=== PATIENT | male | born 1990 | race Caucasian/White ===

== ENCOUNTER 2017-12-06 11:46 | Emergency (ER) | payer OTHER ==
[2017-12-06] MEDS ORDERED: Ketorolac Tromethamine 60 MG/2 ML VIAL ONE (13:04)
== END 2017-12-06 13:12 | disposition home or self-care (01) ==
LOC: ERS 11:46
DX: G89.18 Other acute postprocedural pain (principal); R10.9 Unspecified abdominal pain; Z79.899 Other long term (current) drug therapy
CPT/HCPCS: 96372; J1885

== ENCOUNTER 2019-12-02 17:56 | Observation (INO) | payer OTHER ==
[2019-12-02] MEDS ORDERED: Acetaminophen 500 MG TAB ONE (18:39)
[2019-12-02] MEDS ORDERED: Azithromycin 500 MG VIAL ONE (18:53)
[2019-12-02] MEDS ORDERED: cefTRIAXone\\ROCEPHIN 2 GM VIAL ONE (18:53)
[2019-12-02] MEDS ORDERED: Ondansetron PF 4 MG/2 ML Vial ONE (18:58)
[2019-12-02 19:05] LABS: Hemoglobin 16.5 g/dL (14.0-18.0); Mean Corpuscular HGB CONC 33.7 g/dL (32.0-36.0); Mean Corpuscular Volume 89.1 fL (78.0-98.0); Platelet Count 160 thou/uL (130-400); RBC Distribution Width 11.7 % (11.5-14.5); Red Blood Cell (RBC) Count 5.49 mill/uL (4.70-6.10); White Blood Cell (WBC) Count 6.9 thou/uL (4.8-10.8)
--- NOTE | 2019-12-02 19:05 | RAD ---
Chest AP view INDICATION: Confusion COMPARISON: October 21, 2013 FINDINGS: Lungs: The lungs are clear Cardiac silhouette: The cardiomediastinal silhouette appears within normal limits. Pulmonary vasculature: Normal Pleural spaces: No pleural effusion or pneumothorax is demonstrated. Upper abdomen: No abnormality seen. Osseous structures: No acute osseous abnormality. Additional findings: There is postsurgical change of a distal left clavicle excision. There is ligam entous reconstruction across the left coracoclavicular space. IMPRESSION: No acute cardiopulmonary abnormality.
[2019-12-02 19:24] LABS: Band 6 % (5-11); Lymphocytes 32 % (21-51); MDiff Complete? YES; Monocytes 9 % (0-10); Neutrophil 53 % (42-75); Platelet Morphology Comment Appears Adequate; RBC Morphology Normal
[2019-12-02 19:25] LABS: ALT (SGPT) 24 U/L (8-55); AST (SGOT) 16 U/L (5-34); Albumin 4.4 g/dL (3.5-5.0); Alkaline Phosphatase 67 U/L (40-110); Anion Gap 14 mmol/L (10-20); BUN (Urea Nitrogen) 9 mg/dL (8.9-20.6); Bilirubin, Total 0.5 mg/dL (0.2-1.2); Calc. Creatinine Clearance 0 mL/min (70-130); Carbon Dioxide 25 mmol/L (22-29); Chloride 105 mmol/L (98-107); Estimated GFR-MDRD 80; Globulin 2.5 g/dL (2.4-3.5); Glucose 94 mg/dL (70-105); Potassium 3.7 mmol/L (3.5-5.1); Protein, Total 6.9 g/dL (6.0-8.3); Sodium 140 mmol/L (136-145)
--- NOTE | 2019-12-02 20:21 | PDOC.FPRHP ---
- History of Present Illness Chief Complaint: Fever History of Present Illness: This is a 29 yo male with a pmh of ADHD, anxiety, and essential tremor who presents to the ER with a cc of fever. He states the fever and malaise has been going on for a week with a temperature as high as 102. He states he has felt nauseated, had a headache, and under lots of stress. He denies neck pain, abdominal pain, changes in his vision. He does report mild SOB and a non productive cough. He has not been around any sick contacts. His fiance confirms the same. She states that he has been more lethargic and slow since feeling bad. ED Course: Rocephin 2g Azithromycin 500mg 30ml/kg bolus NS 4mg zofran tyelnol 1g - Allergies/Adverse Reactions Allergies Allergy/AdvReac Type Severity Reaction Status Date / Time No Known Allergies Allergy Verified 12/03/19 00:08 - Home Medications Medication Instructions Recorded Confirmed Type Dextroamphetamine/Amphetamine 20 mg PO QAM 12/03/19 12/03/19 History [Adderall] Ibuprofen [Motrin] 800 mg PO DAILY 12/03/19 12/03/19 History Lisdexamfetamine Dimesylate 50 mg PO QAM 12/03/19 12/03/19 History [Vyvanse] Propranolol HCl 20 mg PO DAILY 12/03/19 12/03/19 History clonazePAM [Clonazepam] 1 mg PO TID 12/03/19 12/03/19 History - History PMHx: Anxiety, adhd, essential tremors PSHx: Hemorrhoidectomy, left clavicle removed FHx: Non contributory Social: Socially drinks, smokes tobacco and vapes - Review of Systems General: reports: fever/chills, weight/appetite/sleep changes, fatigue. denies : night sweats Eyes: denies: eye pain, vision changes ENT: reports: nasal congestion. denies: rhinorrhea Respiratory: reports: cough, shortness of breath. denies: congestion, exercise intolerance Cardiovascular: denies: chest pain, palpitation, edema, paroxysmal nocturnal dyspnea, orthopnea Gastrointestinal: reports: nausea. denies: vomiting, diarrhea, constipation, abdominal pain, GI bleeding Genitourinary: denies: incontinence Skin: denies: rashes, lesions Musculoskeletal: denies: pain, tenderness Neurological: reports: weakness (generalized). denies: numbness, syncope, seizure Psychological: reports: anxiety, depression - Vital signs BP: 129/90 HR: 103 RR: 22 Tmax: 99.6 Pox: 100% on ra Wt: 83.9 - Physical Exam Constitutional: NAD, awake, alert and oriented, well developed, other (mildly lethargic, answers all questions appropriately) HEENT: normocephalic and atraumatic, PERRLA, EOMI, grossly normal vision, grossly normal hearing, MMM Neck: trachea midline, no JVD Chest: no-tender to palpation, other (scar from left clavicle removal) Heart: normal S1/S2, no murmurs/rubs/gallops, pulses present, other (tachycardic , regular rhythm) Lungs: CTAB, no respiratory distress, good air movement, no rales/rhonchi, no wheezing, no retractions Abdomen: soft, non-tender, bowel sounds present, no masses/distention Musculoskeletal: normal tone, ROM grossly normal Neurological: CN II-XII intact, normal sensation Skin: good turgor, capillary refill <2 seconds Heme/Lymphatic: no unusual bruising or bleeding Psychiatric: normal mood and affect FMR H&P: Results - Labs Result Diagrams: 12/02/19 18:42 12/02/19 18:42 Lab results: WBC 6.9 thou/uL (4.8-10.8) 12/02/19 18:42 Hgb 16.5 g/dL (14.0-18.0) 12/02/19 18:42 Hct 48.9 % (42.0-52.0) 12/02/19 18:42 MCV 89.1 fL (78.0-98.0) 12/02/19 18:42 Plt Count 160 thou/uL (130-400) 12/02/19 18:42 Band Neuts % (Manual) 6 % (5-11) 12/02/19 18:42 Sodium 140 mmol/L (136-145) 12/02/19 18:42 Potassium 3.7 mmol/L (3.5-5.1) 12/02/19 18:42 Chloride 105 mmol/L (98-107) 12/02/19 18:42 Carbon Dioxide 25 mmol/L (22-29) 12/02/19 18:42 BUN 9 mg/dL (8.9-20.6) 12/02/19 18:42 Creatinine 1.08 mg/dL (0.7-1.3) 12/02/19 18:42 Glucose 94 mg/dL (70-105) 12/02/19 18:42 Lactic Acid 0.9 mmol/L (0.5-2.2) 12/02/19 18:42 Calcium 9.0 mg/dL (7.8-10.44) 12/02/19 18:42 Total Bilirubin 0.5 mg/dL (0.2-1.2) 12/02/19 18:42 AST 16 U/L (5-34) 12/02/19 18:42 ALT 24 U/L (8-55) 12/02/19 18:42 Alkaline Phosphatase 67 U/L (40-110) 12/02/19 18:42 Serum Total Protein 6.9 g/dL (6.0-8.3) 12/02/19 18:42 Albumin 4.4 g/dL (3.5-5.0) 12/02/19 18:42 - EKG Interpretation EKG: Sinus tachycardia - Radiology Interpretation Chest x-ray Status: image reviewed by me, report reviewed by me (No acute cardiopulmonary abnormality) FMR H&P: A/P - Problem List (1) Confusion Current Visit: Yes Status: Acute Code(s): R41.0 - DISORIENTATION, UNSPECIFIED (2) Fever Current Visit: Yes Status: Deleted Code(s): R50.9 - FEVER, UNSPECIFIED - Plan Confusion -Likely related to viral illness Covid r/o -Admit to medical -Pending covid lab -CMP and CBC grossly normal -CXR normal -VSS -Pending CRP and Procal -Will observe overnight, likely discharge in the morning Sepsis 2/2 likely viral illness -As above ADHD -Hold medications for now Anxiety -Continue home meds Tremor -Continue home beta sara Code: Full Prophylaxis: Lovenox Family: Discussed pt with Vida, with pt's permission Fluids: SL Diet: regular Disposition: DC in 1-2 days PCP: Dr. Sesar Brown, [facility] Addendum - Attending - Attending Attestation Date/Time: 12/03/19 2356 I personally evaluated the patient and discussed the management with Dr. Gudino. I agree with the History, Examination, Assessment and Plan documented above with any addition or exceptions noted below. If COVID very mild case. Obs overnight and plan for dc in the AM.
[2019-12-02] MEDS ORDERED: Acetaminophen 325 MG TAB PO PRN (21:23)
[2019-12-02] MEDS ORDERED: Ondansetron PF 4 MG/2 ML Vial IVP PRN ×2 (21:23→21:26)
[2019-12-02] MEDS ORDERED: Ondansetron ODT 4 MG TAB SL PRN (21:23)
[2019-12-02] MEDS ORDERED: Ondansetron ODT 4 MG TAB PO PRN (21:26)
[2019-12-02] MEDS ORDERED: Acetaminophen 500 MG TAB PO PRN (21:29)
[2019-12-02] MEDS: Sodium Chloride 0.9% 1,000 ML IV SCH (21:41)
[2019-12-03 00:05] VITALS: BMI 23.5
--- NOTE | 2019-12-03 07:26 | PDOC.FM ---
- Subjective Subjective: pt resting comfortably in bed, denies sob/fever - Objective Vital Signs & Weight: Vital Signs (12 hours) Temp Pulse Resp BP BP Pulse Ox 12/03/19 05:00 98.2 F 86 16 133/81 97 12/02/19 21:13 97.5 F L 94 18 138/78 97 Weight Weight 85.304 kg I&O: 12/02/19 12/03/19 12/04/19 06:59 06:59 06:59 Intake Total 1000 Balance 1000 Result Diagrams: 12/02/19 18:42 12/02/19 18:42 Phys Exam - Physical Examination Constitutional: NAD HEENT: moist MMs Neck: no JVD Respiratory: clear to auscultation bilateral Cardiovascular: RRR, no significant murmur Gastrointestinal: non-tender, no distention Musculoskeletal: pulses present Neurological: moves all 4 limbs Psychiatric: normal affect Skin: no rash Dx/Plan (1) Suspected COVID-19 virus infection Code(s): Z20.828 - CONTACT W AND EXPOSURE TO OTH VIRAL COMMUNICABLE DISEASES Status: Acute (2) SIRS (systemic inflammatory response syndrome) Code(s): R65.10 - SIRS OF NON-INFECTIOUS ORIGIN W/O ACUTE ORGAN DYSFUNCTION Status: Acute (3) ADHD Status: Acute (4) Anxiety Code(s): F41.9 - ANXIETY DISORDER, UNSPECIFIED Status: Acute (5) Tremor Code(s): R25.1 - TREMOR, UNSPECIFIED Status: Acute - Plan Plan: Covid r/o -Pending covid lab -CMP and CBC grossly normal, CXR normal, VSS -elevated CRP -dc abx Sepsis 2/2 likely viral illness -As above ADHD -Hold medications for now Anxiety -Continue home meds Tremor -Continue home beta sara Code: Full Prophylaxis: Lovenox dispo:pt stable, dc Addendum - Attending - Attending Attestation Date/Time: 12/03/19 1318 I personally evaluated the patient and discussed the management with Dr. De Paz. I agree with the History, Examination, Assessment and Plan documented above with any addition or exceptions noted below. Patient healthy and with no lab abnormalities or indication for hospitalization. He is stable for discharge and I continue to be unsure about the reason for admission to begin with.
[2019-12-03] MEDS: Sodium Chloride 0.9% 1,000 ML IV SCH (08:38)
[2019-12-03] MEDS ORDERED: Enoxaparin Sodium 40 MG/0.4 ML SYRINGE SC SCH (09:00)
[2019-12-03] MEDS ORDERED: Azithromycin 250 MG TAB PO SCH (09:00)
[2019-12-03 10:22] VITALS: BP 132/81; TEMP 98.7
[2019-12-03 10:43] LABS: SARS-CoV-2 MS2 Positive; SARS-CoV-2 N Gene Negative; SARS-CoV-2 S Gene Negative; SARS-CoV-2 orf1ab Negative
[2019-12-03] MEDS ORDERED: cefTRIAXone\\ROCEPHIN 1 GM in Sodium Chloride 0.9% 100 ML IVPB SCH (18:00)
--- NOTE | 2019-12-04 15:11 | EKG ---
Test Reason : SOB Blood Pressure : / mmHG Vent. Rate : 097 BPM Atrial Rate : 097 BPM P-R Int : 148 ms QRS Dur : 088 ms QT Int : 334 ms P-R-T Axes : 074 080 040 degrees QTc Int : 424 ms Normal sinus rhythm Possible Left atrial enlargement Borderline ECG Confirmed by DOUGLAS VARELA, DESIRE Savage ([id number]), editor city [place] ([id number]) on 12/04/2019 3:10:38 PM Referred By: CONSTANCE Confirmed By:DESIRE COLE MD
--- NOTE | 2019-12-05 03:29 | DIS ---
DATE OF ADMISSION: 12/02/2019 DATE OF DISCHARGE: 12/03/2019 ADMITTING ATTENDING: Dr. Derik Henry. DISCHARGE ATTENDING: Dr. Thiago Lepe. IMAGING DATA: Chest x-ray shows no acute cardiopulmonary process. DISCHARGE MEDICATIONS: Discharged on home medications. See EMR. DISCHARGE DIAGNOSES: 1. COVID rule out. 2. Viral illness. SECONDARY DIAGNOSES: Attention deficit hyperactivity disorder, anxiety, tremor. HISTORY OF PRESENT ILLNESS/HOSPITAL COURSE: Mr. Rose is a 29-year-old male with past medical history significant for anxiety, ADHD, and tremor, who presents to the emergency department after having a fever for 1 week as high as 102, nauseous, and other systemic symptoms. He did report a lot of stress that he feels like he has been under mild shortness of breath. At that time, they deemed that he likely COVID positive. COVID swab was obtained. Rocephin and azithromycin were given. The patient was admitted to medical floor for further monitoring. Upon further evaluation, it was determined that the patient was unlikely to have pneumonia or coronavirus, and was deemed stable for discharge home without any medications. As the patient had a normal chest x-ray. No white blood cell count or other lab abnormalities. Did not have an oxygen requirement or cough. The patient's COVID swab came back negative. The patient was discharged home in stable condition. DISCHARGE INSTRUCTIONS: LOCATION: Home. DIET: Regular. ACTIVITY: As tolerated. FOLLOWUP: Follow up with PCP in the next 7 to 14 days. Job ID: [id number]
== END 2019-12-03 13:20 | disposition home or self-care (01) ==
LOC: ERS 17:56 → T4-A 21:25
PROVIDERS: ADMIT Emergency Medicine; ATTEND Emergency Medicine
DX: A41.9 Sepsis, unspecified organism (principal); B34.9 Viral infection, unspecified; F41.9 Anxiety disorder, unspecified; F90.9 Attention-deficit hyperactivity disorder, unspecified type; G25.0 Essential tremor; F17.290 Nicotine dependence, other tobacco product, uncomplicated; Z20.828 Contact with and (suspected) exposure to other viral communicable diseases; Z79.899 Other long term (current) drug therapy
CPT/HCPCS: 36415; 71045; 80053; 83605; 84145; 85025; 86140; 87040; 87635; 87804; 93005; 94760; 96361; 96365; 96372; 96375; G0378; J0456; J0696; J1650; J2405; U0003

== ENCOUNTER 2020-02-11 22:11 | Observation (INO) | payer OTHER ==
[2020-02-11] MEDS ORDERED: Morphine 4 MG/ML VIAL ONE ×2 (22:33→23:32)
[2020-02-11] MEDS ORDERED: Ondansetron PF 4 MG/2 ML Vial ONE (22:33)
--- NOTE | 2020-02-11 23:01 | CT ---
CT FACIAL BONES: Date: 02/11/2020 INDICATION: Fall with injury to face. FINDINGS: There is flattening of the nasal ridge. This could represent old nasal fracture. No significant swell ing over this region. FINDINGS: The orbits appear intact. Lamina papyracea intact. The paranasal sinuses are aerated. There is mild mucosal thickening in the ethmoid air cells. Frontal air cells are small and atrophic. The maxilla appears intact. The zygoma appear intact. Review of the mandible reveals a displaced fracture involving the right mandibular condyle at the TMJ . IMPRESSION: 1. Displaced fracture of the right mandibular condyle within the TMJ. 2. There is flattening of the nasal ridge. This may not be acute and recommend clinical correlation. 3. No other facial bone fracture identified. POS: AGW
--- NOTE | 2020-02-11 23:02 | CT ---
CT HEAD: Date: 02/11/2020 HISTORY: Fall. FINDINGS: Ventricles have normal size and position. There is no evidence of intracranial hemorrhage. Osseous structures show fracture of the right mandibular condyle. This is described on CT facial bone s. IMPRESSION: 1. No acute intracranial abnormality. 2. Fracture of the right mandibular condyle. POS: AGW
[2020-02-11 23:09] LABS: #Eosinphils 0.2 thou/uL (0.0-0.7); #Lymphocytes 2.1 thou/uL (1.20-3.40); #Monocytes 0.6 thou/uL (0.11-0.59); #Neutrophils 2.5 thou/uL (1.40-6.50); %Basophils 0.5 % (0.0-1.0); %Eosinophils 3.9 % (0.0-10.0); %Lymphocytes 37.7 % (21.0-51.0); %Monocytes 11.6 % (0.0-10.0); %Neutrophils 46.4 % (42.0-75.0); Hemoglobin 16.6 g/dL (14.0-18.0); Mean Corpuscular HGB CONC 33.5 g/dL (32.0-36.0); Mean Corpuscular Hemoglobin 30.1 pg (27.0-31.0); Mean Corpuscular Volume 89.7 fL (78.0-98.0); Mean Platelet Volume 8.6 fL (7.4-10.4); Platelet Count 215 thou/uL (130-400); Red Blood Cell (RBC) Count 5.52 mill/uL (4.70-6.10); White Blood Cell (WBC) Count 5.4 thou/uL (4.8-10.8)
[2020-02-11] MEDS ORDERED: Dextrose 5% in Water 1,000 ML IV PRN (23:24)
[2020-02-11] MEDS ORDERED: hydrALAZINE 20 MG/ML VIAL SLOW IVP PRN (23:24)
[2020-02-11] MEDS ORDERED: Ondansetron PF 4 MG/2 ML Vial IVP PRN (23:24)
[2020-02-11] MEDS ORDERED: Insulin Regular 300 UNITS/3 ML VIAL SC PRN (23:24)
[2020-02-11] MEDS ORDERED: Dextrose 50% Abboject 50 ML SYRINGE SLOW IVP PRN (23:24)
[2020-02-11 23:28] LABS: ALT (SGPT) 44 U/L (8-55); AST (SGOT) 43 U/L (5-34); Albumin 4.6 g/dL (3.5-5.0); Alkaline Phosphatase 68 U/L (40-110); Anion Gap 12 mmol/L (10-20); BUN (Urea Nitrogen) 12 mg/dL (8.9-20.6); Bilirubin, Total 0.5 mg/dL (0.2-1.2); Calc. Creatinine Clearance 0 mL/min (70-130); Calcium 9.3 mg/dL (7.8-10.44); Carbon Dioxide 28 mmol/L (22-29); Chloride 107 mmol/L (98-107); Estimated GFR-MDRD 67; Globulin 2.6 g/dL (2.4-3.5); Glucose 106 mg/dL (70-105); Potassium 4.8 mmol/L (3.5-5.1); Protein, Total 7.2 g/dL (6.0-8.3); Sodium 142 mmol/L (136-145)
[2020-02-11] MEDS ORDERED: Acetaminophen 325 MG/10.15 ML UDCUP PO SCH (23:30)
[2020-02-11] MEDS ORDERED: Ketorolac Tromethamine 30 MG/ML VIAL ONE (23:32)
[2020-02-11] MEDS ORDERED: Morphine 2 MG/ML VIAL SLOW IVP PRN (23:38)
[2020-02-11] MEDS ORDERED: Morphine 4 MG/ML VIAL SLOW IVP PRN (23:38)
[2020-02-12] MEDS: Fentanyl 100 MCG/2 ML VIAL SLOW IVP PRN ×4 (02:57→19:12)
[2020-02-12] MEDS: Ketorolac Tromethamine 30 MG/ML VIAL IVP SCH ×5 (03:03→20:10)
[2020-02-12] MEDS: Sodium Chloride 0.9% 1,000 ML IV SCH ×3 (03:05→17:27)
[2020-02-12] MEDS: Acetaminophen/Codeine 120-12MG/5 ML UDCUP PO PRN ×2 (03:17→14:00)
[2020-02-12] MEDS: Acetaminophen 325 MG/10.15 ML UDCUP PO SCH ×4 (03:22→17:27)
[2020-02-12] MEDS ORDERED: Fentanyl 100 MCG/2 ML VIAL SLOW IVP SCH (03:30)
[2020-02-12 04:02] VITALS: BMI 22.5
--- NOTE | 2020-02-12 05:01 | PDOC.H&P ---
- History & Physical HISTORY OF PRESENT ILLNESS: Mr. Rose is a 29-year-old male, comes into the ED after the fall at work. Patient report he was working late and was very tired, stubble on a concrete floor and fell, face down . He did not loss of consciousness Upon arrival in the ED, the patient complained of right lower extremity pain and deformity. Vital signs were stable and also complained of chest pain. PAST MEDICAL HISTORY: None. PAST SURGICAL HISTORY: None. SOCIAL HISTORY: Denies drug use. Denies alcohol use. Denies smoking history. ALLERGIES: NO KNOWN DRUG ALLERGIES. CURRENT MEDICATIONS: None. PHYSICAL EXAMINATION: GENERAL: Currently, the patient is lying in bed with no acute respiratory distress. Complains of chest pain. VITAL SIGNS: Temperature 98, heart rate is 110, respiratory rate 18, O2 98 room air, blood pressure 120/80. HEENT: R jaw deformity, oozing blood, tender to palpation. Loss of lower teeth NECK: Trachea is midline, nontender to palpation. CHEST: Midchest abrasion. No crepitus. Tender to palpation of the sternal area. LUNGS: Clear bilaterally. HEART: Regular rate and rhythm. ABDOMEN: Atraumatic, no bruising. Nontender to palpation. Nondistended. Bowel sounds are active. PELVIS: Stable. EXTREMITIES: Pulse positive bilaterally. Bilaterally, extremity gross sensory intact. NEUROLOGICAL: No focal neurologic deficits. IMAGING STUDIES: CT of the facial bone shows R mandible fracture ASSESSMENT: 1. Status post mechanical fall 2. Right mandible fracture PLAN: The patient will be admitted to [place] [id number] for pain control. The patient will be n.p.o. at midnight. OMFS specialist will see patient in the morning and discuss on mandible fracture fixation plan . Initiate nonpharmacological DVT prophylaxis, gastritis prophylaxis, and pulmonary toilet. .
[2020-02-12] MEDS: Famotidine/PF 20 mg/2ml Vial SLOW IVP SCH ×2 (09:12→20:10)
[2020-02-12 12:49] LABS: SARS-CoV-2 MS2 Positive; SARS-CoV-2 N Gene Negative; SARS-CoV-2 S Gene Negative; SARS-CoV-2 by NAA Not Detected (NotDetected); SARS-CoV-2 orf1ab Negative
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
--- NOTE | 2020-02-12 18:58 | PRG ---
DATE OF SERVICE: 02/12/2020 SUBJECTIVE: The patient is currently on the surgical floor. He was admitted last night, status post reportedly a ground level fall which he sustained a right mandibular condyle fracture and he is currently awaiting surgery by [facility]. The patient had no issues overnight. This morning, he was examined with Dr. Farrar. PHYSICAL EXAMINATION: VITAL SIGNS: Temperature is 98.4, heart rate 75, blood pressure 123/73, respirations 14, oxygen saturation is 94% on room air. GENERAL: The patient is resting comfortably in bed. He was asleep when we entered the room, but awakens to verbal stimuli. He only complains of right-sided jaw pain. HEENT: The patient is noted to have swelling to the right infraorbital and mandibular area consistent with his fracture. His pupils are equal, round, reactive to light and extraocular motions intact. A small amount of crusted blood is noted on his lip and his right nare. Ears are atraumatic without discharge. LUNGS: Clear to auscultation bilaterally. HEART: Regular rate and rhythm. ABDOMEN: Soft, nondistended. EXTREMITIES: The patient moves freely. LABORATORY DATA: There are no labs or radiographs to review this morning. ASSESSMENT/PLAN: 1. Status post ground level fall. 2. Right mandibular condyle fracture, awaiting surgery. 3. Fracture of teeth #26, #27. PLAN: Plan will be to make the patient n.p.o. after midnight. He will be going to the operating room with Dr. Cox and likely be discharged tomorrow evening though there is a possibility he will spend one more night here in the facility. Again, the patient was examined this morning during rounds with Dr. Farrar. Job ID: [id number]
--- NOTE | 2020-02-12 18:59 | PDOC.CONS ---
- Consultation I have discussed the patient with the advanced practice provider and agree with the findings and plan of care annotated in their note dated February 11, 2020. I have examined the patient and reviewed the pertinent radiographic and laboratory findings. Briefly, 29-year-old male status post fall face down. Denies loss of consciousness. Emergency department work-up demonstrates comminuted fracture of the right mandible at the temporomandibular joint. PLAN: Admit to trauma service OMFS consulted and plans for operative repair.
[2020-02-12] MEDS: Acetaminophen 650 MG/20.3 ML UDCUP PO SCH (23:30)
--- NOTE | 2020-02-12 23:57 | PDOC.BPN ---
- Brief Progress Note DATE OF SERVICE: 02/12/2020 SUBJECTIVE: Mr. Rose is an 29-year-old male, status post ground level fall. he sustained right mandibular fracture. the patient voiced no concern.pain is controlled he developed no fever or shortness of breath. Dr Brown will take patient to the OR tomorrow OBJECTIVE: GENERAL: Currently, the patient is lying in bed comfortable with no acute respiratory distress. VITAL SIGNS: Stable. LUNGS: Clear bilaterally. HEART: Regular rate and rhythm. ABDOMEN: Soft and nondistended. EXTREMITIES: Neurovascularly intact x4. Postop dressing clean and dry. NEUROLOGIC: No focal neurology deficits. ASSESSMENT: 1. Status post ground level fall. 2. Right mandibular fracture PLAN: Continue supportive care. Continue pain control. NPO at midnight. Dr Brown will take patient to the OR tomorrow for R mandibular fracture fixation
[2020-02-13] MEDS: Ketorolac Tromethamine 30 MG/ML VIAL IVP SCH ×4 (03:05→21:48)
[2020-02-13] MEDS: Sodium Chloride 0.9% 1,000 ML IV SCH ×3 (03:06→15:54)
[2020-02-13] MEDS: Fentanyl 100 MCG/2 ML VIAL SLOW IVP PRN (06:10)
[2020-02-13] MEDS: Acetaminophen 650 MG/20.3 ML UDCUP PO SCH ×4 (06:24→23:26)
[2020-02-13] MEDS ORDERED: Lidocaine 1% w/Epinephrine 1:100K 20 ML VIAL ONE (07:25)
[2020-02-13] MEDS ORDERED: Chlorhexidine Gluconate 15 ML UDCUP SSP ONE (07:25)
[2020-02-13] MEDS ORDERED: Promethazine HCl 25 MG/ML VIAL SLOW IVP PRN ×2 (07:48→11:12)
[2020-02-13] MEDS ORDERED: Midazolam HCl 2 mg/2 ml Vial ONE (07:48)
[2020-02-13] MEDS ORDERED: Ondansetron HCl/PF 4 MG/2 ML Vial IVP PRN ×2 (07:48→11:12)
[2020-02-13] MEDS ORDERED: Fentanyl 100 MCG/2 ML VIAL ONE ×2 (07:48→11:18)
[2020-02-13] MEDS ORDERED: HYDROmorphone 2 MG/ML VIAL ONE (07:48)
[2020-02-13] MEDS ORDERED: Promethazine HCl 25 MG/ML VIAL IM PRN ×2 (07:48→11:12)
[2020-02-13] MEDS ORDERED: AFRIN NASAL MIST 15 ML BOT ONE (07:49)
[2020-02-13] MEDS ORDERED: Lidocaine 2% Jelly 5 ML TUBE ONE (07:49)
[2020-02-13] MEDS ORDERED: Clindamycin/D5W 900 mg/50 ml Premix Bag ONE (07:54)
[2020-02-13] MEDS ORDERED: Dexamethasone 4 mg/ml Vial ONE (07:54)
[2020-02-13] MEDS ORDERED: Bacitracin Zinc Ointment 30 gm TUBE ONE (09:46)
[2020-02-13] MEDS ORDERED: Ketorolac Tromethamine 30 MG/ML VIAL ONE (10:03)
[2020-02-13] MEDS ORDERED: Ondansetron PF 4 MG/2 ML Vial ONE (10:03)
[2020-02-13] MEDS ORDERED: Rocuronium Bromide 10 MG/ML (10ML VIAL) ONE (10:03)
[2020-02-13] MEDS ORDERED: PROPOFOL 200 MG/20 ML VIAL ONE (10:03)
[2020-02-13] MEDS ORDERED: Dexamethasone 20 MG/5 ML VIAL ONE (10:03)
[2020-02-13] MEDS ORDERED: PHENYLEPHRINE-NS 100 MCG/ML 10 ML SYRINGE ONE (10:03)
[2020-02-13] MEDS ORDERED: Glycopyrrolate 0.2 MG/ML 5 ML SYRINGE ONE (10:03)
[2020-02-13] MEDS ORDERED: diphenhydrAMINE 50 MG/ML VIAL ONE (10:03)
[2020-02-13] MEDS ORDERED: Bupivacaine 0.25% HCL 30 ML VIAL ONE (10:06)
[2020-02-13] MEDS: Famotidine/PF 20 mg/2ml Vial SLOW IVP SCH ×2 (10:14→21:47)
[2020-02-13] MEDS ORDERED: Meperidine HCl/PF 25 MG/ML VIAL SLOW IVP PRN (11:12)
[2020-02-13] MEDS ORDERED: PACU-Morphine 4MG/ML VIAL SLOW IVP PRN (11:12)
[2020-02-13] MEDS ORDERED: Morphine Sulfate 2 MG/ML SYRINGE SLOW IVP PRN (11:12)
[2020-02-13] MEDS ORDERED: HYDROmorphone 2 MG/ML VIAL SLOW IVP PRN (11:12)
[2020-02-13] MEDS ORDERED: Morphine 4 MG/ML VIAL ONE (11:31)
[2020-02-13] MEDS: Dexamethasone 4 mg/ml Vial SLOW IVP SCH ×2 (15:43→21:49)
[2020-02-13] MEDS: Clindamycin/D5W 900 MG in Premix Bag 1 BAG IVPB SCH ×2 (15:46→23:26)
--- NOTE | 2020-02-13 21:18 | PDOC.BPN ---
- Brief Progress Note I have discussed the patient with the advanced practice provider and agree with the findings and plan of care annotated in their note dated February 13, 2020. I have examined the patient and reviewed the pertinent radiographic and laboratory findings. Briefly, 29-year-old male status post fall from standing with temporomandibular joint fracture. Status post ORIF with OMFS this morning. Doing well postoperatively. PLAN: Plan for discharge home per recommendations and follow-up with OMFS.
[2020-02-13] MEDS: clonazePAM 1 MG TAB PO SCH (22:04)
--- NOTE | 2020-02-13 23:13 | PDOC.BPN ---
- Brief Progress Note DATE OF SERVICE: 02/13/2020 SUBJECTIVE: Mr. Rose is an 29-year-old male, status post ground level fall. he sustained right mandibular fracture status post repaired today. Post op patient has been doing well Tolerate his diet, vital stable OBJECTIVE: GENERAL: Currently, the patient is lying in bed comfortable with no acute respiratory distress. VITAL SIGNS: Stable. LUNGS: Clear bilaterally. HEART: Regular rate and rhythm. ABDOMEN: Soft and nondistended. EXTREMITIES: Neurovascularly intact x4. Postop dressing clean and dry. NEUROLOGIC: No focal neurology deficits. ASSESSMENT: 1. Status post ground level fall. 2. Right mandibular fracture status post repaired PLAN: Continue supportive care. Continue pain control. continue liquid diet encourage participate walking program
[2020-02-14] MEDS: Ketorolac Tromethamine 30 MG/ML VIAL IVP SCH ×2 (03:06→09:28)
[2020-02-14] MEDS: Dexamethasone 4 mg/ml Vial SLOW IVP SCH ×2 (03:07→09:34)
[2020-02-14] MEDS: Acetaminophen/Codeine 120-12MG/5 ML UDCUP PO PRN ×2 (03:12→09:46)
[2020-02-14] MEDS: Acetaminophen 650 MG/20.3 ML UDCUP PO SCH ×2 (05:28→11:56)
[2020-02-14] MEDS: Fentanyl 100 MCG/2 ML VIAL SLOW IVP PRN (05:34)
--- NOTE | 2020-02-14 06:46 | OP ---
DATE OF PROCEDURE: 02/13/2020 PREOPERATIVE DIAGNOSIS: 1. Right mandibular condylar fracture. 2. Fractured teeth, 26 and 27. 3. 5 cm complex chin laceration. 4. 2.5 cm tongue laceration. POSTOPERATIVE DIAGNOSES: 1. Right mandibular condylar fracture closed. 2. Fractured teeth, 26 and 27. Also of note, #4 did have a buccal cusp fracture. 3. 5 cm chin laceration. 4. 2.5 cm complex tongue laceration. PROCEDURES PERFORMED: 1. Closed reduction of the mandible fracture, right mandibular condylar fracture with intermaxillary fixation, arch bars and wires. 2. Surgical removal of teeth 26 and 27, socket preservation bone graft of 26 and 27, and placement of barrier membrane which was an OsseoGuard. 3. Complex closure of 5 cm chin laceration. 4. Complex closure of 2.5 cm tongue laceration. ESTIMATED BLOOD LOSS: 50 mL. ANESTHESIA: General endotracheal anesthesia through nasal tube. DISPOSITION: At the end of the procedure, the patient was stable, extubated, and transferred to postop recovery unit. BRIEF PATIENT HISTORY AND DESCRIPTION OF PROCEDURE: This is a 29-year-old male, status post fall with mandible fracture, noted lacerations including tongue and chin, fractured teeth 26 and 27. Upon further intraoral exam today, it was noted that the buccal cusp was sheared off at #4, and it was decided to leave tooth as it may be salvageable with root canal and crown by general dentist. After intubation, a throat pack was placed after careful suctioning of the oropharynx, a Ray-Brii sponge was used for throat pack. Forceps removal was attempted on roots of 26 and 27, which were sheared off at the gumline. However, this was unsuccessful, so a 15 blade was used to make an incision in the sulcular area of those teeth. Full-thickness mucoperiosteal flap was made, drilled, buccal ostectomy and sectioning of these teeth were done followed by elevator removal, curetting of sockets was done, normal saline irrigation. Bone graft with approximately 1.5 mL of Puros cancellous bone, OsseoGuard membrane, nonresorbable expanded PTFE was placed. Closure primarily with 4-0 chromic gut. Arch bars were then placed as it was noted that the patient had preop malocclusion and premature occlusion on the right. Arch bars were placed from maxillary first molar to maxillary first molar using arch bars and 24-gauge wire. After this was done, occlusion was checked. Tongue laceration was then approximated using deep 4-0 chromic stitches followed by superficial 4-0 chromic after thorough irrigation and debridement with normal saline. Chin laceration was then taken care of. This was washed thoroughly with normal saline. Wound edges cleaned with a 15 blade. Closure with deep 5-0 Vicryl followed by superficial 6-0 Prolene. The patient was then placed in intermaxillary fixation with heavy elastics after removal of the throat pack. The patient tolerated the procedure well. He is to follow up in my clinic within 1 week. I would like to keep him in the heavy MMF with the heavy elastics for at least the first couple of weeks, full liquid diet. The patient has prescription of Hycet 300 mL, 15 mL p.o. q.6 hours p.r.n. pain, no refills. He also has a prescription for amoxicillin liquid suspension 500 mg p.o. t.i.d. x1 week as well as a Peridex oral rinse prescription t.i.d. for one week. Job ID: [id number]
[2020-02-14 07:45] VITALS: TEMP 97.6
[2020-02-14] MEDS ORDERED: DEXTROAMPHETAMINE PO SCH (09:00)
[2020-02-14] MEDS ORDERED: (Lisdexamfetamine Dimesylate [Vyvanse] 50 MG) PO SCH (09:00)
[2020-02-14] MEDS ORDERED: Propranolol HCl 20 MG TAB PO SCH (09:00)
[2020-02-14] MEDS ORDERED: AMPHETAMINE PO SCH (09:00)
[2020-02-14] MEDS: Famotidine/PF 20 mg/2ml Vial SLOW IVP SCH (09:31)
[2020-02-14] MEDS: clonazePAM 1 MG TAB PO SCH (09:34)
[2020-02-14] MEDS: Clindamycin/D5W 900 MG in Premix Bag 1 BAG IVPB SCH (09:34)
[2020-02-14 11:39] VITALS: BP 144/81
== END 2020-02-14 16:07 | disposition home or self-care (01) ==
LOC: ERS 22:11 → SURG B 23:26
PROVIDERS: ADMIT Surgery; ATTEND Surgery
PROC: 0CDXXZ1 Extraction of Lower Tooth, Multiple, External Approach (ICD-10-PCS; principal; 2020-02-13)
PROC: 0NR Head and Facial Bones, Replacement (ICD-10-PCS; 2020-02-13)
PROC: 0NSTXZZ Reposition Right Mandible, External Approach (ICD-10-PCS; 2020-02-13)
PROC: 2W31X9Z Immobilization of Face using Wire (ICD-10-PCS; 2020-02-13)
PROC: 0CQ7XZZ Repair Tongue, External Approach (ICD-10-PCS; 2020-02-13)
PROC: 0JQ10ZZ Repair Face Subcutaneous Tissue and Fascia, Open Approach (ICD-10-PCS; 2020-02-13)
DX: S02.611A Fracture of condylar process of right mandible, initial encounter for closed fracture (principal); S02.5XXA Fracture of tooth (traumatic), initial encounter for closed fracture; S01.81XA Laceration without foreign body of other part of head, initial encounter; S01.512A Laceration without foreign body of oral cavity, initial encounter; F17.290 Nicotine dependence, other tobacco product, uncomplicated; F41.9 Anxiety disorder, unspecified; F90.9 Attention-deficit hyperactivity disorder, unspecified type; Z79.899 Other long term (current) drug therapy; Z01.812 Encounter for preprocedural laboratory examination; W01.0XXA Fall on same level from slipping, tripping and stumbling without subsequent striking against object, initial encounter; Y99.0 Civilian activity done for income or pay
CPT/HCPCS: 36415; 70450; 70486; 80053; 85025; 87635; 93005; 96361; 96374; 96375; 96376; G0378; G0390; J1100; J1170; J1200; J1885; J2250; J2270; J2405; J2704; J3010; J3490; S0020; S0028; U0003

== ENCOUNTER 2020-07-08 11:56 | Emergency (ER) | payer OTHER ==
[2020-07-09 02:16] LABS: SARS-CoV-2 MS2 Positive; SARS-CoV-2 N Gene Negative; SARS-CoV-2 S Gene Negative; SARS-CoV-2 by NAA Not Detected (NotDetected); SARS-CoV-2 orf1ab Negative
== END 2020-07-08 12:45 | disposition home or self-care (01) ==
LOC: ERS 11:56
DX: L02.224 Furuncle of groin (principal); Z20.828 Contact with and (suspected) exposure to other viral communicable diseases; F17.290 Nicotine dependence, other tobacco product, uncomplicated
CPT/HCPCS: 87635; 99283; U0003